=== PATIENT | male | born 1945 | race African-American/Black ===

== ENCOUNTER 2017-12-18 11:13 | Inpatient (IN) | payer MEDICARE ==
[2017-12-18] MEDS ORDERED: ACETAMINOPHEN 325 MG TABLET PO ONE (11:47)
[2017-12-18] MEDS ORDERED: NORMAL SALINE 1000 ML 1,000 ML IV ONE ×2 (11:47→15:33)
--- NOTE | 2017-12-18 11:49 | ER Document Report ---
ED Medical Screen (RME) - General Chief Complaint: Pain All Over Stated Complaint: PAIN ALL OVER Time Seen by Provider: 12/18/17 11:35 Notes: RAPID MEDICAL EVALUATION DISCLOSURE I have seen this patient as part of a Rapid Medical Evaluation and, if applicable, placed any initially appropriate orders. The patient will be seen and fully evaluated, including a full history and physical exam, by a provider ( in Main ED or Fast Track) when a room becomes available. 72-year-old male here with complaints of aches and pains all over as well as loss of appetite and possible dehydration. He states that approximately 1 month ago he sprained his right ankle and knee and was seen at [facility] where he was told he had sprains. He was taken home and states that he then started to have gout flare in multiple joints and was unable to ambulate therefore became "bedridden". Since then, he has had loss of appetite due to the pain in his joints and rest of his body. He reports he has only had 2 meals in the past few weeks and feels as though he may be dehydrated. His doctor, Dr. Mera, told him to come here. EXAM CTAB RRR Mildly decreased skin turgor TRAVEL OUTSIDE OF THE [place] IN LAST 30 DAYS: No - Related Data Allergies/Adverse Reactions: No Known Allergies Allergy (Verified 12/18/17 11:20) Physical Exam - Vital signs Vitals: Temp Pulse Resp BP Pulse Ox 97.4 F 97 14 124/79 98 12/18/17 11:25 12/18/17 11:25 12/18/17 11:25 12/18/17 11:25 12/18/17 11:25 Course - Vital Signs Vital signs: Temp Pulse Resp BP Pulse Ox 97.4 F 97 14 124/79 98 12/18/17 11:25 12/18/17 11:25 12/18/17 11:25 12/18/17 11:25 12/18/17 11:25
[2017-12-18 12:19] LABS: HEMATOCRIT 35.1 % (37.9-51.0); HEMOGLOBIN 11.6 g/dL (13.5-17.0); MEAN CORPUSCULAR HEMOGLOBIN 24.5 pg (27.0-33.4); MEAN CORPUSCULAR HGB CONC 33.1 g/dL (32.0-36.0); MEAN CORPUSCULAR VOLUME 74 fl (80-97); PLATELET COUNT 281 10^3/uL (150-450); RED BLOOD COUNT 4.73 10^6/uL (4.35-5.55); RED CELL DISTRIBUTION WIDTH 17.2 % (11.5-14.0); WHITE BLOOD COUNT 9.5 10^3/uL (4.0-10.5)
[2017-12-18 12:37] LABS: ALANINE AMINOTRANSFERASE 39 U/L (21-72); ALBUMIN 3.4 g/dL (3.5-5.0); ALKALINE PHOSPHATASE 88 U/L (38-126); ANION GAP 11 (5-19); ASPARTATE AMINO TRANSFERASE 58 U/L (17-59); BILIRUBIN,DIRECT 0.5 mg/dL (0.0-0.4); BILIRUBIN,TOTAL 0.5 mg/dL (0.2-1.3); BLOOD UREA NITROGEN 13 mg/dL (7-20); CALCIUM 8.9 mg/dL (8.4-10.2); CARBON DIOXIDE 25 mmol/L (22-30); CHLORIDE 93 mmol/L (98-107); CREATINE KINASE 43 U/L (55-170); GLUCOSE 93 mg/dL (75-110); PHOSPHORUS 3.9 mg/dL (2.5-4.5); POTASSIUM 4.6 mmol/L (3.6-5.0); SODIUM 128.7 mmol/L (137-145); TOTAL PROTEIN 7.7 g/dL (6.3-8.2)
[2017-12-18 12:45] LABS: ABSOLUTE MONOCYTES # (MANUAL) 0.4 10^3/uL (0.1-1.4); BASOPHILS % (MANUAL) 0 % (0-2); EOSINOPHILS % (MANUAL) 1 % (0-6); LYMPHOCYTES % (MANUAL) 32 % (13-45); MONOCYTES % (MANUAL) 4 % (3-13); SEGMENTED NEUTROPHILS % (MAN) 63 % (42-78); TOTAL CELLS COUNTED 100
[2017-12-18 12:46] LABS: ANISOCYTOSIS 1+; HYPOCHROMASIA 1+; PLATELET COMMENT ADEQUATE; TARGET CELLS 1+
--- NOTE | 2017-12-18 13:37 | ER Document Report ---
ED General - General Chief Complaint: Pain All Over Stated Complaint: PAIN ALL OVER Time Seen by Provider: 12/18/17 11:35 Notes: Patient is here today complaining of problems with his gout and weakness. Patient says that he has fallen a couple of times in the past few weeks. He is too weak to get up out of the bed. Has a history of gout affecting most of his joints complicating his ability to stand or walk. Patient denies any recent fever or chills. Denies any loss of consciousness or loss of use of either side of his body. Has never had a stroke. Patient had a fall on December 04 and injured his knee and ankle he has gout with involvement of all of his big joints of both the upper and lower extremity. He is not been able to walk since 07 December when he fell and was seen at [facility] emergency room. He had swelling of his joints at that time but was discharged home. He describes himself as currently being "bedridden" due to weakness and due to pain. He feels his skin is dry. Denies any difficulty breathing or shortness of breath. Denies any vomiting. TRAVEL OUTSIDE OF THE [place] IN LAST 30 DAYS: No - Related Data Allergies/Adverse Reactions: No Known Allergies Allergy (Verified 12/18/17 11:20) Past Medical History - Social History Smoking Status: Never Smoker Chew tobacco use (# tins/day): No Frequency of alcohol use: None Drug Abuse: None Family History: Reviewed & Not Pertinent Patient has suicidal ideation: No Patient has homicidal ideation: No - Past Medical History Cardiac Medical History: Reports: Hx Hypertension Musculoskeletal Medical History: Reports Hx Gout - On colchicine Psychiatric Medical History: Reports: Hx Anxiety, Hx Depression - anxiety Review of Systems - Review of Systems Notes: REVIEW OF SYSTEMS: CONSTITUTIONAL : Denies fever. Complains of weakness, generalized. EENT: Denies eye, ear, nose or mouth or throat pain or other symptoms. CARDIOVASCULAR: Denies chest pain. RESPIRATORY: Denies cough, chest congestion, or shortness of breath. GASTROINTESTINAL: Denies abdominal pain or nausea, vomiting, or diarrhea. GENITOURINARY: Denies difficulty or painful urinating, urinary frequency, blood in urine. MUSCULOSKELETAL: Denies back or neck pain. Denies joint pain or swelling. SKIN: Denies rash or skin lesions. NEUROLOGICAL: Denies LOC or altered mental status. Denies headache. Denies sensory loss or motor deficits. ALL OTHER SYSTEMS REVIEWED AND NEGATIVE. Physical Exam - Vital signs Vitals: Temp Pulse Resp BP Pulse Ox 97.4 F 97 14 124/79 98 12/18/17 11:25 12/18/17 11:25 12/18/17 11:25 12/18/17 11:25 12/18/17 11:25 Interpretation: Normal - Notes Notes: PHYSICAL EXAMINATION: GENERAL: Well-appearing, in no acute distress. Vital signs were all essentially normal. HEAD: Atraumatic, normocephalic. EYES: Pupils equal round and reactive to light, extraocular movements intact. ENT: oropharynx clear without exudates. Moist mucous membranes. NECK: Normal range of motion, supple. No carotid bruits heard. LUNGS: Breath sounds clear and equal bilaterally. HEART: Regular rate and rhythm without murmurs. ABDOMEN: Soft, nontender. No guarding or rebound. No masses. BACK: No tenderness throughout entire back. EXTREMITIES: N patient has some significant swelling of almost all of the large joints of his upper and lower extremities. I do not feel any tenths swelling of the knees or any effusions present. He does have some involvement of his olecranon bursa area as well as of the wrist and hands. These findings are all consistent with chronic gout. NEUROLOGICAL: Normal speech, unable to walk because of pain. Normal sensory, motor, and reflex exams. No lateralizing signs. Awake, alert, and oriented x3. Cranial nerves normal. PSYCH: Normal mood, normal affect. SKIN: Warm, dry, no rashes. Course - Re-evaluation Re-evalutation: 12/18/17 19:51 Patient's sodium is low. I spoke with Dr. Irene, his primary care provider, who will admit him for saline IV infusion. - Vital Signs Vital signs: Temp Pulse Resp BP Pulse Ox 97.9 F 78 16 157/83 H 98 12/18/17 17:30 12/18/17 17:30 12/18/17 17:30 12/18/17 17:30 12/18/17 17:30 - Laboratory Result Diagrams: 12/18/17 11:55 12/18/17 11:55 Laboratory results interpreted by me: 12/18/17 12/18/17 12/18/17 11:55 11:55 14:10 Hgb 11.6 L Hct 35.1 L MCV 74 L MCH 24.5 L RDW 17.2 H Sodium 128.7 L Chloride 93 L Direct Bilirubin 0.5 H Creatine Kinase 43 L Albumin 3.4 L Urine Ketones 20 H Discharge - Discharge Clinical Impression: Gout, Hyponatremia Condition: Stable Disposition: ADMITTED OBSERVATION Admitting Provider: [facility] Unit Admitted: Medical Floor
[2017-12-18 14:50] LABS: APPEARANCE,URINE CLEAR; BILIRUBIN,URINE NEGATIVE (NEGATIVE); COLOR,URINE YELLOW; GLUCOSE, URINE NEGATIVE (NEGATIVE); KETONES,URINE 20 mg/dL (NEGATIVE); LEUKOCYTE ESTERASE,URINE NEGATIVE (NEGATIVE); NITRITE,URINE NEGATIVE (NEGATIVE); PROTEIN,URINE NEGATIVE (NEGATIVE); URINE SPECIFIC GRAVITY 1.012; UROBILINOGEN,URINE NEGATIVE mg/dL (<2.0)
[2017-12-18 20:41] LABS: CREATINE KINASE MB 0.96 ng/mL (<4.55)
[2017-12-18 21:10] LABS: TROPONIN I < 0.012 ng/mL
--- NOTE | 2017-12-18 21:37 | PDOC H&P ---
History of Present Illness Admission Date/PCP: 12/18/17 15:49 History of Present Illness: MARYAM BENZ is a 72 year old male he came to the emergency room at [facility] for evaluation of pain involving multiple joints, weakness, fall. Patient stated that he had a fall on December 04 and injured his knee and ankle,, he said he has not been able to walk since December 07 after the fall, he was seen at [facility] emergency room, he was evaluated and discharged home, he said he is essentially bed ridden due to weakness and pain. He lives in [place] but he comes to see me in [place] for many years, he called the office on Sunday to describe his condition he wanted me to arrange an ambulance to transfer him for his residence to be admitted in this hospital in [facility]. I attempted to get [facility] to have him transported from [place] to [place] but they have no opening, family and friend was able to have him transferred into private automobile to the emergency room at [place]. I saw him on the floor he has swelling of the knees, wrist, elbow, consistent with gout. He has history of gout, the CRP was elevated. He was also found to have hyponatremia, SIADH type. He has a history of type 2 diabetes mellitus, this was treated with diet, he has consistently refused to have his blood drawn to check his A1c below the A1c that was done on this admission is 5.5 suggesting a well controlled diabetes mellitus. Past Medical History Cardiac Medical History: Reports: Hypertension Musculoskeltal Medical History: Reports: Gout - On colchicine Psychiatric Medical History: Reports: Depression - anxiety Social History Smoking Status: Never Smoker Frequency of Alcohol Use: None Hx Recreational Drug Use: No Drugs: None Hx Prescription Drug Abuse: No - Advance Directive Resuscitation Status: Full Code Family History Family History: Reviewed & Not Pertinent Parental Family History Reviewed: Yes Children Family History Reviewed: Yes Sibling(s) Family History Reviewed.: Yes Medication/Allergy Home Medications: Carvedilol Phosphate [Coreg CR 80 mg Ext. Release Capsule] 1 cap.sr PO DAILY Colchicine [Colchicine 0.6 mg Tablet] 0.6 mg PO DAILYP PRN 12/18/17 Lorazepam [Ativan 1 mg Tablet] 1 mg PO Q8 12/18/17 Mirtazapine 45 mg PO QHS 12/18/17 Olmesartan/Amlodipin/Hcthiazid [Tribenzor 40-10-25 mg Tablet] 1 each PO DAILY Allergies/Adverse Reactions: No Known Allergies Allergy (Verified 12/18/17 11:20) Review of Systems Constitutional: ABSENT: chills, fever(s), headache(s), weight gain, weight loss Eyes: ABSENT: visual disturbances Ears: ABSENT: hearing changes Cardiovascular: ABSENT: chest pain, dyspnea on exertion, edema, orthropnea, palpitations Respiratory: ABSENT: cough, hemoptysis Gastrointestinal: ABSENT: abdominal pain, constipation, diarrhea, hematemesis, hematochezia, nausea, vomiting Genitourinary: ABSENT: dysuria, hematuria Musculoskeletal: PRESENT: joint swelling, muscle weakness Integumentary: ABSENT: rash, wounds Neurological: ABSENT: abnormal gait, abnormal speech, confusion, dizziness, focal weakness, syncope Psychiatric: ABSENT: anxiety, depression, homidical ideation, suicidal ideation Endocrine: ABSENT: cold intolerance, heat intolerance, menstrual abnormalities, polydipsia, polyuria Hematologic/Lymphatic: ABSENT: easy bleeding, easy bruising, lymphadenopathy Physical Exam Vital Signs: Temp Pulse Resp BP Pulse Ox 98.4 F 87 17 131/79 H 97 12/18/17 20:05 12/18/17 20:05 12/18/17 20:05 12/18/17 20:05 12/18/17 20:05 Intake & Output 12/17/17 12/18/17 12/19/17 06:59 06:59 06:59 Weight 121.563 kg General appearance: PRESENT: no acute distress Head exam: PRESENT: atraumatic, normocephalic Eye exam: PRESENT: conjunctiva pink, EOMI, PERRLA Ear exam: PRESENT: normal external ear exam Neck exam: PRESENT: full ROM Respiratory exam: PRESENT: clear to auscultation marlo Cardiovascular exam: PRESENT: RRR, +S1, +S2 GI/Abdominal exam: PRESENT: normal bowel sounds, soft Rectal exam: PRESENT: deferred Musculoskeletal exam: PRESENT: tenderness, other - There is swelling, tenderness of multiple joints including both elbows, both knees, the ankleS Neurological exam: PRESENT: alert, CN II-XII grossly intact Psychiatric exam: PRESENT: appropriate affect, normal mood Skin exam: PRESENT: dry, intact, warm Results Laboratory Results: 12/18/17 12/18/17 19:45 19:45 Serum Osmolality 266 L C-Reactive Protein 42.8 H 12/18/17 12/18/17 19:45 19:45 Creatine Kinase 29 L CK-MB (CK-2) 0.96 Troponin I < 0.012 Assessment & Plan - Diagnosis (1) Polyarticular gout Is this a current diagnosis for this admission?: Yes Plan: Patient is admitted for the management of polyarticular gout, he will be treated with IV Solu-Medrol. He has essentially lost mobility because of the severe inflammation affecting multiple joints, the serum uric acid is low, a poor indicator of acute gouty arthropathy because of uric acid is all in the joint space at this time so serum uric acid does not correlate with acute gouty arthropathy. (2) SIADH (syndrome of inappropriate ADH production) Is this a current diagnosis for this admission?: Yes (3) Weakness Is this a current diagnosis for this admission?: Yes Plan: Patient has lost mobility because of severe gouty arthropathy
[2017-12-18] MEDS: METHYLPREDNISOLONE INJ 125 MG/2 ML SDV IV SCH (21:44)
[2017-12-18] MEDS ORDERED: CARVEDILOL PHOSPHATE PO SCH ×2 (21:45→22:00)
[2017-12-18] MEDS: LORAZEPAM 1 MG TABLET PO SCH (23:59)
[2017-12-19 02:14] LABS: CREATINE KINASE MB 1.17 ng/mL (<4.55); TROPONIN I < 0.012 ng/mL
[2017-12-19] MEDS: METHYLPREDNISOLONE INJ 125 MG/2 ML SDV IV SCH ×3 (06:16→21:58)
--- NOTE | 2017-12-19 07:48 | EKG REPORT ---
SEVERITY:- ABNORMAL ECG - SINUS RHYTHM FIRST DEGREE AV BLOCK LEFT AXIS DEVIATION BORDERLINE T ABNORMALITIES, INFERIOR LEADS : Confirmed by: Lenny Dobbs MD 19-Dec-2017 07:47:30
[2017-12-19 08:39] LABS: HEMATOCRIT 33.6 % (37.9-51.0); HEMOGLOBIN 11.2 g/dL (13.5-17.0); MEAN CORPUSCULAR HEMOGLOBIN 24.6 pg (27.0-33.4); MEAN CORPUSCULAR HGB CONC 33.2 g/dL (32.0-36.0); MEAN CORPUSCULAR VOLUME 74 fl (80-97); PLATELET COUNT 246 10^3/uL (150-450); RED BLOOD COUNT 4.55 10^6/uL (4.35-5.55); RED CELL DISTRIBUTION WIDTH 17.6 % (11.5-14.0); WHITE BLOOD COUNT 10.4 10^3/uL (4.0-10.5)
[2017-12-19] MEDS: LORAZEPAM 1 MG TABLET PO SCH ×3 (08:42→21:59)
[2017-12-19 09:00] LABS: ALANINE AMINOTRANSFERASE 42 U/L (21-72); ALKALINE PHOSPHATASE 86 U/L (38-126); ANION GAP 16 (5-19); ASPARTATE AMINO TRANSFERASE 41 U/L (17-59); BILIRUBIN,DIRECT 0.5 mg/dL (0.0-0.4); BILIRUBIN,TOTAL 0.5 mg/dL (0.2-1.3); BLOOD UREA NITROGEN 15 mg/dL (7-20); CALCIUM 8.8 mg/dL (8.4-10.2); CARBON DIOXIDE 18 mmol/L (22-30); CHLORIDE 96 mmol/L (98-107); GLUCOSE 112 mg/dL (75-110); POTASSIUM 4.9 mmol/L (3.6-5.0); SODIUM 130.4 mmol/L (137-145); TOTAL PROTEIN 6.8 g/dL (6.3-8.2)
[2017-12-19 09:10] LABS: ABSOLUTE LYMPHOCYTES# (MANUAL) 0.8 10^3/uL (0.5-4.7); ABSOLUTE MONOCYTES # (MANUAL) 0.2 10^3/uL (0.1-1.4); ABSOLUTE NEUTROPHILS# (MANUAL) 9.4 10^3/uL (1.7-8.2); BASOPHILS % (MANUAL) 0 % (0-2); EOSINOPHILS % (MANUAL) 0 % (0-6); HYPOCHROMASIA SLIGHT; LYMPHOCYTES % (MANUAL) 8 % (13-45); MONOCYTES % (MANUAL) 2 % (3-13); SEGMENTED NEUTROPHILS % (MAN) 90 % (42-78); TOTAL CELLS COUNTED 100
[2017-12-19 09:11] LABS: ANISOCYTOSIS 1+; PLATELET COMMENT ADEQUATE; PLATELET LARGE PRESENT; POIKILOCYTOSIS SLIGHT; TARGET CELLS SLIGHT; TEAR DROP CELLS SLIGHT; TOXIC GRANULATION 1+
[2017-12-19 09:13] LABS: CREATINE KINASE MB 1.15 ng/mL (<4.55)
[2017-12-19 09:16] LABS: TROPONIN I < 0.012 ng/mL
[2017-12-19] MEDS: ENOXAPARIN SODIUM INJ 40 MG/0.4 ML DISP.SYRIN SUBCUT SCH (09:30)
--- NOTE | 2017-12-19 17:56 | PDOC PROGRESS REPORT ---
Subjective Progress Note for:: 12/19/17 Subjective:: Patient was admitted yesterday virtually bedridden for the first time in 3 weeks he is able to get up and walk, the swelling of the elbow is almost resolved the knee swelling is gone down, the ankle swelling is resolved. Reason For Visit: INFLAMMATORY ARTHRITIS AFFECTING MULTIPLE JOINTS, Physical Exam Vital Signs: Temp Pulse Resp BP Pulse Ox 97.9 F 86 18 161/86 H 98 12/19/17 15:25 12/19/17 15:25 12/19/17 15:25 12/19/17 15:25 12/19/17 15:25 Intake & Output 12/18/17 12/19/17 12/20/17 06:59 06:59 06:59 Intake Total 1000 Output Total 400 700 Balance 600 -700 Weight 121.563 kg General appearance: PRESENT: no acute distress Eye exam: PRESENT: PERRLA Respiratory exam: PRESENT: clear to auscultation marlo Cardiovascular exam: PRESENT: +S1, +S2 GI/Abdominal exam: PRESENT: soft Neurological exam: PRESENT: alert Results Laboratory Results: 12/19/17 07:45 12/19/17 07:45 12/18/17 12/18/17 12/19/17 19:45 19:45 07:45 WBC RBC Hgb Hct MCV MCH MCHC RDW Plt Count Seg Neutrophils % Lymphocytes % Monocytes % Eosinophils % Basophils % Absolute Neutrophils Absolute Lymphocytes Absolute Monocytes Absolute Eosinophils Absolute Basophils Sodium Potassium Chloride Carbon Dioxide Anion Gap BUN Creatinine Est GFR ( Amer) Est GFR (Non-Af Amer) Glucose Serum Osmolality 266 L Calcium Total Bilirubin AST ALT Alkaline Phosphatase C-Reactive Protein 42.8 H Total Protein Albumin TSH 1.88 12/19/17 12/19/17 07:45 07:45 WBC 10.4 RBC 4.55 Hgb 11.2 L Hct 33.6 L MCV 74 L MCH 24.6 L MCHC 33.2 RDW 17.6 H Plt Count 246 Seg Neutrophils % Not Reportable Lymphocytes % Not Reportable Monocytes % Not Reportable Eosinophils % Not Reportable Basophils % Not Reportable Absolute Neutrophils Not Reportable Absolute Lymphocytes Not Reportable Absolute Monocytes Not Reportable Absolute Eosinophils Not Reportable Absolute Basophils Not Reportable Sodium 130.4 L Potassium 4.9 Chloride 96 L Carbon Dioxide 18 L Anion Gap 16 BUN 15 Creatinine 0.82 Est GFR ( Amer) > 60 Est GFR (Non-Af Amer) > 60 Glucose 112 H Serum Osmolality Calcium 8.8 Total Bilirubin 0.5 AST 41 ALT 42 Alkaline Phosphatase 86 C-Reactive Protein Total Protein 6.8 Albumin 3.0 L TSH 12/18/17 12/18/17 12/19/17 19:45 19:45 01:42 Creatine Kinase 29 L 36 L CK-MB (CK-2) 0.96 Troponin I < 0.012 12/19/17 12/19/17 12/19/17 01:42 07:45 07:45 Creatine Kinase 33 L CK-MB (CK-2) 1.17 1.15 Troponin I < 0.012 < 0.012 Assessment & Plan - Diagnosis (1) Polyarticular gout Is this a current diagnosis for this admission?: Yes Plan: Patient will continue IV Solu-Medrol, he showed tremendous response to treatment continue for a few more days (2) SIADH (syndrome of inappropriate ADH production) Is this a current diagnosis for this admission?: Yes Plan: Reduce sodium chloride infusion (3) Weakness Is this a current diagnosis for this admission?: Yes
[2017-12-19] MEDS: CARVEDILOL 12.5 MG TABLET PO SCH (21:59)
[2017-12-20] MEDS: METHYLPREDNISOLONE INJ 125 MG/2 ML SDV IV SCH ×3 (06:22→22:00)
[2017-12-20] MEDS: LORAZEPAM 1 MG TABLET PO SCH ×3 (06:23→22:00)
[2017-12-20] MEDS ORDERED: COLCHICINE 0.6 MG TABLET PO PRN (08:24)
[2017-12-20 08:59] LABS: ABSOLUTE LYMPHOCYTES (AUTO) 3.1 10^3/uL (0.5-4.7); ABSOLUTE MONOCYTES (AUTO) 0.5 10^3/uL (0.1-1.4); ABSOLUTE NEUT (AUTO) 13.6 10^3/uL (1.7-8.2); BASOPHILS % (AUTO) 0.1 % (0-2); HEMATOCRIT 31.5 % (37.9-51.0); HEMOGLOBIN 10.3 g/dL (13.5-17.0); LYMPHOCYTES % (AUTO) 18.2 % (13-45); MEAN CORPUSCULAR HEMOGLOBIN 23.9 pg (27.0-33.4); MEAN CORPUSCULAR HGB CONC 32.6 g/dL (32.0-36.0); MEAN CORPUSCULAR VOLUME 73 fl (80-97); MONOCYTES % (AUTO) 2.6 % (3-13); PLATELET COUNT 229 10^3/uL (150-450); RED BLOOD COUNT 4.29 10^6/uL (4.35-5.55); RED CELL DISTRIBUTION WIDTH 17.5 % (11.5-14.0); SEGMENTED NEUTROPHILS % (AUTO) 79.1 % (42-78); TOTAL CELLS COUNTED % (AUTO) 100 %; WHITE BLOOD COUNT 17.2 10^3/uL (4.0-10.5)
[2017-12-20 09:20] LABS: ALANINE AMINOTRANSFERASE 39 U/L (21-72); ALBUMIN 2.8 g/dL (3.5-5.0); ALKALINE PHOSPHATASE 72 U/L (38-126); ANION GAP 11 (5-19); ASPARTATE AMINO TRANSFERASE 31 U/L (17-59); BILIRUBIN,DIRECT 0.3 mg/dL (0.0-0.4); BILIRUBIN,TOTAL 0.4 mg/dL (0.2-1.3); BLOOD UREA NITROGEN 25 mg/dL (7-20); CALCIUM 8.9 mg/dL (8.4-10.2); CARBON DIOXIDE 21 mmol/L (22-30); CHLORIDE 95 mmol/L (98-107); GLUCOSE 148 mg/dL (75-110); POTASSIUM 4.6 mmol/L (3.6-5.0); TOTAL PROTEIN 6.5 g/dL (6.3-8.2)
[2017-12-20] MEDS: ENOXAPARIN SODIUM INJ 40 MG/0.4 ML DISP.SYRIN SUBCUT SCH (09:52)
[2017-12-20] MEDS: CARVEDILOL 12.5 MG TABLET PO SCH ×2 (09:56→22:00)
[2017-12-20] MEDS ORDERED: (PENDING PHARMACY ID) (Olmesartan/Amlodipin/Hcthiazid [Tribenzor 40-10-25 Mg Tablet] 1 EAC PO SCH (10:00)
[2017-12-20] MEDS: LOSARTAN POTASSIUM 50 MG TABLET PO SCH (10:35)
[2017-12-20] MEDS: HYDROCHLOROTHIAZIDE 25 MG TABLET PO SCH (10:35)
[2017-12-20] MEDS: AMLODIPINE BESYLATE 10 MG TABLET PO SCH (10:35)
--- NOTE | 2017-12-20 13:12 | Physician Advisory Note ---
Physician Advisor ProgressNote .: Pursuant to the plan for [facility], I have reviewed the medical record for this patient. Physician Advisor Statement: Please consider documenting, if you agree: 1. "[acute? acute on chronic?] weakness, suspect due to " (acute hyponatremia? deconditioning due to gout effects? relative hypoglycemia? ...) 2. "Acute hyponatremia, due to SIADH, suspect due to " (dehydration? HCTZ? ...) 3. Medical necessity: reasons why pt couldn't safely go home 12/19 (+/- po prednisone) when already feeling "much better" & "able to ambulate" again, w/Na better & no longer giving IVF - & also reasons why he can't go home today, if applicable - - "needing to monitor Na level for potential worsening again after stopping IVF"? - " not back to baseline"? (describe) - "I was/am CONCERNED about " Summary: Pt w/extensive gout, sufficiently severe to make him unable to ambulate recently. Also w/hyponatremia (acute?), which improved initially after IVF in ED. Weakness, presumably acute, likely due to . Given IV NS @150 initially, after bolus, which should affect his Na levels. This appears to have been d/c'd later on 12/19, since it was from an ED order. Home combo BP med's components (incl HCTZ & losartan) were held until today. Potential Medical Necessity issues: -Needing acute high dose steroids, which could play havoc with his DM control. ? reasons why glc not darline-high on such tremendous doses Solumedrol? - Pt is anemic. If due to underlying chronic GI bleeding (gastritis, ...), huge doses of Solumedrol could cause worsening of this. - Today's Na level worse (lower) again. - BUN is worsening, which could indicate dehydration or occult GI bleed, while Hgb appears noticeably lower today. - Now starting HCTZ again today, which may further worsen his Na levels. Status: If attending documents his concerns that made pt have clinical need for continued tx/monitoring in hospital 12/19 & 12/20, should be appropriate for conversion to Inpatient status. CK
[2017-12-20] MEDS ORDERED: DEXTROSE 50%-WATER 25 GM/50 ML DISP.SYRIN IV PRN ×2 (18:51)
[2017-12-20] MEDS ORDERED: GLUCAGON,HUMAN RECOMB 1 MG INJ IM PRN (18:51)
[2017-12-20] MEDS ORDERED: DEXTROSE 40% GEL 15 GM TUBE PO PRN ×2 (18:51)
--- NOTE | 2017-12-20 18:57 | PDOC PROGRESS REPORT ---
Subjective Progress Note for:: 12/20/17 Subjective:: Patient was admitted initially for observation for the management of polyarticular gout, he is on high-dose corticosteroid, Solu-Medrol 25 IV every 6 hours patient is responding to treatment but it is not safe to discharge patient home today, he still requires inpatient care for monitoring especially because of the hyperglycemia secondary to IV Solu-Medrol, history of diabetes mellitus presentl diet-controlledy, he will be started on Accu-Chek before meal with sliding scale to cover hyperglycemia. He also have hyponatremia secondary to SIADH, etiology unclear, the serum sodium is low today, we will continue Solu -Medrol for another day we will transition to p.o. prednisone tomorrow Reason For Visit: INFLAMMATORY ARTHRITIS AFFECTING MULTIPLE JOINTS, Physical Exam Vital Signs: Temp Pulse Resp BP Pulse Ox 97.3 F 71 22 H 148/92 H 97 12/20/17 15:56 12/20/17 15:56 12/20/17 15:56 12/20/17 15:56 12/20/17 15:56 Intake & Output 12/19/17 12/20/17 12/21/17 06:59 06:59 06:59 Intake Total 1000 Output Total 400 700 Balance 600 -700 Weight 121.563 kg 120.8 kg General appearance: PRESENT: no acute distress Eye exam: PRESENT: PERRLA Respiratory exam: PRESENT: clear to auscultation marlo Cardiovascular exam: PRESENT: +S1, +S2 GI/Abdominal exam: PRESENT: soft Neurological exam: PRESENT: alert, CN II-XII grossly intact Results Laboratory Results: 12/20/17 08:38 12/20/17 08:38 12/20/17 12/20/17 08:38 08:38 WBC 17.2 H RBC 4.29 L Hgb 10.3 L Hct 31.5 L MCV 73 L MCH 23.9 L MCHC 32.6 RDW 17.5 H Plt Count 229 Seg Neutrophils % 79.1 H Lymphocytes % 18.2 Monocytes % 2.6 L Eosinophils % 0.0 Basophils % 0.1 Absolute Neutrophils 13.6 H Absolute Lymphocytes 3.1 Absolute Monocytes 0.5 Absolute Eosinophils 0.0 Absolute Basophils 0.0 Sodium 127.0 L Potassium 4.6 Chloride 95 L Carbon Dioxide 21 L Anion Gap 11 BUN 25 H Creatinine 0.89 Est GFR ( Amer) > 60 Est GFR (Non-Af Amer) > 60 Glucose 148 H Calcium 8.9 Total Bilirubin 0.4 AST 31 ALT 39 Alkaline Phosphatase 72 Total Protein 6.5 Albumin 2.8 L 12/18/17 12/18/17 12/19/17 19:45 19:45 01:42 Creatine Kinase 29 L 36 L CK-MB (CK-2) 0.96 Troponin I < 0.012 12/19/17 12/19/17 12/19/17 01:42 07:45 07:45 Creatine Kinase 33 L CK-MB (CK-2) 1.17 1.15 Troponin I < 0.012 < 0.012 Assessment & Plan - Diagnosis (1) Polyarticular gout Is this a current diagnosis for this admission?: Yes (2) SIADH (syndrome of inappropriate ADH production) Is this a current diagnosis for this admission?: Yes (3) Weakness Is this a current diagnosis for this admission?: Yes (4) Steroid-induced hyperglycemia Is this a current diagnosis for this admission?: Yes - Plan Summary Plan Summary: Continue IV Solu-Medrol, start Accu-Chek q. before meals at bedtime with sliding scale change status to inpatient
[2017-12-21 07:10] LABS: ABSOLUTE NEUT (AUTO) 12.5 10^3/uL (1.7-8.2); BASOPHILS % (AUTO) 0.1 % (0-2); HEMATOCRIT 30.9 % (37.9-51.0); HEMOGLOBIN 10.3 g/dL (13.5-17.0); TOTAL CELLS COUNTED % (AUTO) 100 %
[2017-12-21] MEDS: LORAZEPAM 1 MG TABLET PO SCH ×3 (07:17→22:12)
[2017-12-21] MEDS: METHYLPREDNISOLONE INJ 125 MG/2 ML SDV IV SCH ×2 (07:17→13:18)
[2017-12-21 07:23] LABS: MEAN CORPUSCULAR VOLUME 72 fl (80-97)
[2017-12-21 07:33] LABS: ALANINE AMINOTRANSFERASE 41 U/L (21-72); ALBUMIN 2.8 g/dL (3.5-5.0); ALKALINE PHOSPHATASE 69 U/L (38-126); ANION GAP 9 (5-19); ASPARTATE AMINO TRANSFERASE 32 U/L (17-59); BILIRUBIN,DIRECT 0.4 mg/dL (0.0-0.4); BILIRUBIN,TOTAL 0.5 mg/dL (0.2-1.3); BLOOD UREA NITROGEN 24 mg/dL (7-20); CALCIUM 8.9 mg/dL (8.4-10.2); CARBON DIOXIDE 24 mmol/L (22-30); CHLORIDE 96 mmol/L (98-107); GLUCOSE 164 mg/dL (75-110); POTASSIUM 4.1 mmol/L (3.6-5.0); SODIUM 128.9 mmol/L (137-145); TOTAL PROTEIN 6.2 g/dL (6.3-8.2)
[2017-12-21 08:02] LABS: MEAN CORPUSCULAR HEMOGLOBIN 23.9 pg (27.0-33.4); MEAN CORPUSCULAR HGB CONC 33.2 g/dL (32.0-36.0); PLATELET COUNT 226 10^3/uL (150-450); RED CELL DISTRIBUTION WIDTH 17.5 % (11.5-14.0); WHITE BLOOD COUNT 14.7 10^3/uL (4.0-10.5)
[2017-12-21 08:03] LABS: ABSOLUTE LYMPHOCYTES (AUTO) 1.7 10^3/uL (0.5-4.7); LYMPHOCYTES % (AUTO) 11.8 % (13-45); MONOCYTES % (AUTO) 3.2 % (3-13)
[2017-12-21 08:04] LABS: ABSOLUTE MONOCYTES (AUTO) 0.5 10^3/uL (0.1-1.4); SEGMENTED NEUTROPHILS % (AUTO) 84.9 % (42-78)
[2017-12-21] MEDS: INSULIN LISPRO 100 UNIT/ML 3 ML VIAL SUBCUT PRN (08:58)
[2017-12-21] MEDS: AMLODIPINE BESYLATE 10 MG TABLET PO SCH (09:00)
[2017-12-21] MEDS: ENOXAPARIN SODIUM INJ 40 MG/0.4 ML DISP.SYRIN SUBCUT SCH (09:00)
[2017-12-21] MEDS: HYDROCHLOROTHIAZIDE 25 MG TABLET PO SCH (09:00)
[2017-12-21] MEDS: LOSARTAN POTASSIUM 50 MG TABLET PO SCH (09:02)
[2017-12-21] MEDS: CARVEDILOL 12.5 MG TABLET PO SCH ×2 (09:02→22:11)
[2017-12-21] MEDS: METHYLPREDNISOLONE INJ 40 MG/1 ML SDV IV SCH (19:46)
--- NOTE | 2017-12-21 20:23 | PDOC PROGRESS REPORT ---
Subjective Progress Note for:: 12/21/17 Subjective:: Patient was seen by the bedside, he was admitted on Sunday this week initially for observation for evaluation and management of polyarticular gout with loss of function and mobility, the gout was very severe to the extent that patient was not ambulatory, there was involvement of the knees, the elbow the ankles, he was treated with IV Solu-Medrol he was able to make some strides but is not safe yet for discharge ,physical therapy will be ordered for this patient.I will be off for the and be back on Sunday Reason For Visit: POLYARTICULAR GOUT,HYPONATREMIA Physical Exam Vital Signs: Temp Pulse Resp BP Pulse Ox 97.4 F 73 18 143/76 H 96 12/21/17 19:34 12/21/17 19:34 12/21/17 19:34 12/21/17 19:34 12/21/17 19:34 Intake & Output 12/20/17 12/21/17 12/22/17 06:59 06:59 06:59 Output Total 850 Balance -850 General appearance: PRESENT: obese Respiratory exam: PRESENT: clear to auscultation marlo Cardiovascular exam: PRESENT: +S1, +S2 Musculoskeletal exam: PRESENT: deformity Neurological exam: PRESENT: alert Results Laboratory Results: 12/21/17 06:59 12/21/17 06:59 12/21/17 12/21/17 06:59 06:59 WBC 14.7 H RBC 4.30 L Hgb 10.3 L Hct 30.9 L MCV 72 L MCH 23.9 L MCHC 33.2 RDW 17.5 H Plt Count 226 Seg Neutrophils % 84.9 H Lymphocytes % 11.8 L Monocytes % 3.2 Eosinophils % 0.0 Basophils % 0.1 Absolute Neutrophils 12.5 H Absolute Lymphocytes 1.7 Absolute Monocytes 0.5 Absolute Eosinophils 0.0 Absolute Basophils 0.0 Sodium 128.9 L Potassium 4.1 Chloride 96 L Carbon Dioxide 24 Anion Gap 9 BUN 24 H Creatinine 0.91 Est GFR ( Amer) > 60 Est GFR (Non-Af Amer) > 60 Glucose 164 H Calcium 8.9 Total Bilirubin 0.5 AST 32 ALT 41 Alkaline Phosphatase 69 Total Protein 6.2 L Albumin 2.8 L Assessment & Plan - Diagnosis (1) Polyarticular gout Is this a current diagnosis for this admission?: Yes Plan: Reduce Solu-Medrol to 60 mg IV from 125mg IV every 8 hours (2) SIADH (syndrome of inappropriate ADH production) Is this a current diagnosis for this admission?: Yes (3) Weakness Is this a current diagnosis for this admission?: Yes Plan: Consult physical therapy (4) Steroid-induced hyperglycemia Is this a current diagnosis for this admission?: Yes
[2017-12-22] MEDS: METHYLPREDNISOLONE INJ 40 MG/1 ML SDV IV SCH ×4 (05:39→20:59)
[2017-12-22] MEDS: LORAZEPAM 1 MG TABLET PO SCH ×3 (06:47→20:59)
[2017-12-22] MEDS: INSULIN LISPRO 100 UNIT/ML 3 ML VIAL SUBCUT PRN (10:25)
[2017-12-22] MEDS: ENOXAPARIN SODIUM INJ 40 MG/0.4 ML DISP.SYRIN SUBCUT SCH (10:25)
[2017-12-22] MEDS: AMLODIPINE BESYLATE 10 MG TABLET PO SCH (10:26)
[2017-12-22] MEDS: HYDROCHLOROTHIAZIDE 25 MG TABLET PO SCH (10:26)
[2017-12-22] MEDS: LOSARTAN POTASSIUM 50 MG TABLET PO SCH (10:26)
[2017-12-22] MEDS: CARVEDILOL 12.5 MG TABLET PO SCH ×2 (10:26→21:00)
[2017-12-23] MEDS: METHYLPREDNISOLONE INJ 40 MG/1 ML SDV IV SCH ×3 (05:54→21:55)
[2017-12-23] MEDS: LORAZEPAM 1 MG TABLET PO SCH ×3 (05:56→21:55)
[2017-12-23] MEDS: INSULIN LISPRO 100 UNIT/ML 3 ML VIAL SUBCUT PRN ×2 (10:28→17:51)
[2017-12-23] MEDS: ENOXAPARIN SODIUM INJ 40 MG/0.4 ML DISP.SYRIN SUBCUT SCH (10:29)
[2017-12-23] MEDS: CARVEDILOL 12.5 MG TABLET PO SCH ×2 (10:32→21:57)
[2017-12-23] MEDS: LOSARTAN POTASSIUM 50 MG TABLET PO SCH (10:33)
[2017-12-23] MEDS: AMLODIPINE BESYLATE 10 MG TABLET PO SCH (10:34)
--- NOTE | 2017-12-23 12:25 | PDOC PROGRESS REPORT ---
Subjective Progress Note for:: 12/22/17 Subjective:: Patient reported some improvement in his multiple joints aches and pain. Functional limitation persist. No chest pain or difficulty with breathing. No nausea or vomiting. No abdominal pain. No fever or chills. Reason For Visit: POLYARTICULAR GOUT,HYPONATREMIA Physical Exam Vital Signs: Temp Pulse Resp BP Pulse Ox 98.5 F 67 18 166/86 H 95 12/22/17 06:51 12/22/17 06:51 12/22/17 06:51 12/22/17 06:51 12/22/17 06:51 Intake & Output 12/21/17 12/22/17 12/23/17 06:59 06:59 06:59 Intake Total 550 400 Output Total 2100 Balance -1550 400 Weight 120.1 kg General appearance: PRESENT: no acute distress, obese Head exam: PRESENT: atraumatic, normocephalic Eye exam: PRESENT: conjunctiva pink, EOMI, PERRLA. ABSENT: scleral icterus Ear exam: PRESENT: normal external ear exam Mouth exam: PRESENT: moist Respiratory exam: PRESENT: clear to auscultation marlo Cardiovascular exam: PRESENT: RRR. ABSENT: diastolic murmur, rubs, systolic murmur Vascular exam: ABSENT: pallor GI/Abdominal exam: PRESENT: normal bowel sounds, soft. ABSENT: distended, guarding, mass, organolmegaly, rebound, tenderness Extremities exam: ABSENT: pedal edema Musculoskeletal exam: PRESENT: deformity - due to joint involvement with arthritis. No torpus involvement. Neurological exam: PRESENT: alert, awake, oriented to person, oriented to place , oriented to time, oriented to situation, CN II-XII grossly intact. ABSENT: motor sensory deficit Psychiatric exam: PRESENT: appropriate affect, normal mood. ABSENT: homicidal ideation, suicidal ideation Skin exam: PRESENT: dry, intact, warm. ABSENT: cyanosis, rash Results Laboratory Results: 12/21/17 06:59 12/21/17 06:59 Assessment & Plan - Diagnosis (1) Polyarticular gout Is this a current diagnosis for this admission?: Yes Plan: Continue current IV Solu Medrol therapy with gradual tapering and eventual transition to oral route. (2) Steroid-induced hyperglycemia Is this a current diagnosis for this admission?: Yes Plan: Due to steroid therapy. Maintain on sliding scale insulin therapy. This will resolve upon discontinuation of steroid therapy. (3) Hyponatremia Is this a current diagnosis for this admission?: Yes Plan: Continue current medication management. (4) SIADH (syndrome of inappropriate ADH production) Is this a current diagnosis for this admission?: Yes Plan: Continue current medication management. - Time Time Spent with patient: 25-34 minutes Medications reviewed and adjusted accordingly: Yes Anticipated discharge: Home with Homehealth Within: Other - Inpatient Certification Based on my medical assessment, after consideration of the patient's comorbidities, presenting symptoms, or acuity I expect that the services needed warrant INPATIENT care.: Yes I certify that my determination is in accordance with my understanding of Medicare's requirements for reasonable and necessary INPATIENT services [42 CFR 412.3e].: Yes Medical Necessity: Need Close Monitoring Due to Risk of Patient Decompensation, Risk of Complication if Not Cared For in Hospital 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 See covering attending physician orders.
--- NOTE | 2017-12-23 12:28 | PDOC PROGRESS REPORT ---
Subjective Progress Note for:: 12/23/17 Subjective:: Patient reported satisfactory participation in physical therapy session. Improvement in his joint pain and functional level. No chest pain or difficulty with breathing. No abdominal pain, nausea, or vomiting. Tolerating oral feeding. No fever or chills. Reason For Visit: POLYARTICULAR GOUT,HYPONATREMIA Physical Exam Vital Signs: Temp Pulse Resp BP Pulse Ox 99.0 F 66 16 146/80 H 94 12/23/17 11:02 12/23/17 11:02 12/23/17 11:02 12/23/17 11:02 12/23/17 11:02 Intake & Output 12/22/17 12/23/17 12/24/17 06:59 06:59 06:59 Intake Total 550 800 Output Total 2100 750 Balance -1550 50 Weight 120.1 kg 120 kg Physical Exam: General appearance: PRESENT: no acute distress, obese Head exam: PRESENT: atraumatic, normocephalic Eye exam: PRESENT: conjunctiva pink, EOMI, PERRLA. ABSENT: scleral icterus Ear exam: PRESENT: normal external ear exam Mouth exam: PRESENT: moist Respiratory exam: PRESENT: clear to auscultation marlo Cardiovascular exam: PRESENT: RRR. ABSENT: diastolic murmur, rubs, systolic murmur Vascular exam: ABSENT: pallor GI/Abdominal exam: PRESENT: normal bowel sounds, soft. ABSENT: distended, guarding, mass, organomegaly, rebound, tenderness Extremities exam: ABSENT: pedal edema Musculoskeletal exam: PRESENT: deformity - due to joint involvement with arthritis. Neurological exam: PRESENT: alert, awake, oriented to person, oriented to place , oriented to time, oriented to situation, CN II-XII grossly intact. ABSENT: motor sensory deficit Psychiatric exam: PRESENT: appropriate affect, normal mood. ABSENT: homicidal ideation, suicidal ideation Skin exam: PRESENT: dry, intact, warm. ABSENT: cyanosis, rash Results Laboratory Results: 12/21/17 06:59 12/21/17 06:59 Assessment & Plan - Diagnosis (1) Polyarticular gout Is this a current diagnosis for this admission?: Yes (2) Steroid-induced hyperglycemia Is this a current diagnosis for this admission?: Yes (3) Hyponatremia Is this a current diagnosis for this admission?: Yes (4) SIADH (syndrome of inappropriate ADH production) Is this a current diagnosis for this admission?: Yes - Time Time Spent with patient: 25-34 minutes Medications reviewed and adjusted accordingly: Yes Anticipated discharge: Home with Homehealth Within: Other - Inpatient Certification Based on my medical assessment, after consideration of the patient's comorbidities, presenting symptoms, or acuity I expect that the services needed warrant INPATIENT care.: Yes I certify that my determination is in accordance with my understanding of Medicare's requirements for reasonable and necessary INPATIENT services [42 CFR 412.3e].: Yes Medical Necessity: Need Close Monitoring Due to Risk of Patient Decompensation, Need For IV Fluids, Need for Pain Control, Risk of Complication if Not Cared For in Hospital 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
[2017-12-24] MEDS: METHYLPREDNISOLONE INJ 40 MG/1 ML SDV IV SCH (05:26)
[2017-12-24] MEDS: LORAZEPAM 1 MG TABLET PO SCH ×3 (05:26→22:00)
[2017-12-24 06:17] LABS: HEMOGLOBIN 10.2 g/dL (13.5-17.0); MEAN CORPUSCULAR HGB CONC 32.9 g/dL (32.0-36.0); MEAN CORPUSCULAR VOLUME 73 fl (80-97); PLATELET COUNT 238 10^3/uL (150-450); RED BLOOD COUNT 4.25 10^6/uL (4.35-5.55); RED CELL DISTRIBUTION WIDTH 17.8 % (11.5-14.0); WHITE BLOOD COUNT 16.8 10^3/uL (4.0-10.5)
[2017-12-24 06:39] LABS: ALANINE AMINOTRANSFERASE 47 U/L (21-72); ALBUMIN 2.7 g/dL (3.5-5.0); ALKALINE PHOSPHATASE 63 U/L (38-126); ANION GAP 9 (5-19); ASPARTATE AMINO TRANSFERASE 26 U/L (17-59); BILIRUBIN,DIRECT 0.3 mg/dL (0.0-0.4); BILIRUBIN,TOTAL 0.4 mg/dL (0.2-1.3); BLOOD UREA NITROGEN 27 mg/dL (7-20); CALCIUM 8.5 mg/dL (8.4-10.2); CARBON DIOXIDE 26 mmol/L (22-30); CHLORIDE 91 mmol/L (98-107); GLUCOSE 199 mg/dL (75-110); POTASSIUM 3.5 mmol/L (3.6-5.0); SODIUM 126.4 mmol/L (137-145); TOTAL PROTEIN 5.8 g/dL (6.3-8.2)
[2017-12-24 06:59] LABS: ABSOLUTE LYMPHOCYTES# (MANUAL) 1.3 10^3/uL (0.5-4.7); ABSOLUTE MONOCYTES # (MANUAL) 0.7 10^3/uL (0.1-1.4); ABSOLUTE NEUTROPHILS# (MANUAL) 14.8 10^3/uL (1.7-8.2); ANISOCYTOSIS 1+; BASOPHILS % (MANUAL) 0 % (0-2); EOSINOPHILS % (MANUAL) 0 % (0-6); HYPOCHROMASIA 1+; LYMPHOCYTES % (MANUAL) 8 % (13-45); MONOCYTES % (MANUAL) 4 % (3-13); PLATELET COMMENT ADEQUATE; POIKILOCYTOSIS 2+; SCHISTOCYTES 1+; SEGMENTED NEUTROPHILS % (MAN) 88 % (42-78); TARGET CELLS 2+; TOTAL CELLS COUNTED 100
[2017-12-24] MEDS: LOSARTAN POTASSIUM 50 MG TABLET PO SCH (09:25)
[2017-12-24] MEDS: AMLODIPINE BESYLATE 10 MG TABLET PO SCH (09:25)
[2017-12-24] MEDS: ENOXAPARIN SODIUM INJ 40 MG/0.4 ML DISP.SYRIN SUBCUT SCH (09:26)
[2017-12-24] MEDS: CARVEDILOL 12.5 MG TABLET PO SCH ×2 (09:26→22:00)
[2017-12-24] MEDS: INSULIN LISPRO 100 UNIT/ML 3 ML VIAL SUBCUT PRN ×2 (10:45→17:29)
--- NOTE | 2017-12-24 10:56 | PDOC PROGRESS REPORT ---
Subjective Progress Note for:: 12/24/17 Subjective:: Patient continue to improve in his functional level. Currently, he denied any joint pain. No chest pain or difficulty with breathing. No abdominal pain, nausea, or vomiting. No fever or chills. Reason For Visit: POLYARTICULAR GOUT,HYPONATREMIA Physical Exam Vital Signs: Temp Pulse Resp BP Pulse Ox 98.3 F 66 16 147/84 H 96 12/24/17 07:38 12/24/17 07:38 12/24/17 07:38 12/24/17 07:38 12/24/17 07:38 Intake & Output 12/23/17 12/24/17 12/25/17 06:59 06:59 06:59 Intake Total 800 800 Output Total 750 1400 Balance 50 -600 Weight 120 kg 120.8 kg Physical Exam: General appearance: PRESENT: no acute distress, obese Head exam: PRESENT: atraumatic, normocephalic Eye exam: PRESENT: conjunctiva pink, EOMI, PERRLA. ABSENT: scleral icterus Ear exam: PRESENT: normal external ear exam Mouth exam: PRESENT: moist Respiratory exam: PRESENT: clear to auscultation marlo Cardiovascular exam: PRESENT: RRR. ABSENT: diastolic murmur, rubs, systolic murmur Vascular exam: ABSENT: pallor GI/Abdominal exam: PRESENT: normal bowel sounds, soft. ABSENT: distended, guarding, mass, organomegaly, rebound, tenderness Extremities exam: ABSENT: pedal edema Musculoskeletal exam: PRESENT: deformity - due to joint involvement with arthritis. Neurological exam: PRESENT: alert, awake, oriented to person, oriented to place , oriented to time, oriented to situation, CN II-XII grossly intact. ABSENT: motor sensory deficit Psychiatric exam: PRESENT: appropriate affect, normal mood. ABSENT: homicidal ideation, suicidal ideation Skin exam: PRESENT: dry, intact, warm. ABSENT: cyanosis, rash Results Laboratory Results: 12/24/17 05:52 12/24/17 05:52 12/24/17 12/24/17 05:52 05:52 WBC 16.8 H RBC 4.25 L Hgb 10.2 L Hct 31.0 L MCV 73 L MCH 24.0 L MCHC 32.9 RDW 17.8 H Plt Count 238 Seg Neutrophils % Not Reportable Lymphocytes % Not Reportable Monocytes % Not Reportable Eosinophils % Not Reportable Basophils % Not Reportable Absolute Neutrophils Not Reportable Absolute Lymphocytes Not Reportable Absolute Monocytes Not Reportable Absolute Eosinophils Not Reportable Absolute Basophils Not Reportable Sodium 126.4 L Potassium 3.5 L Chloride 91 L Carbon Dioxide 26 Anion Gap 9 BUN 27 H Creatinine 0.90 Est GFR ( Amer) > 60 Est GFR (Non-Af Amer) > 60 Glucose 199 H Calcium 8.5 Total Bilirubin 0.4 AST 26 ALT 47 Alkaline Phosphatase 63 Total Protein 5.8 L Albumin 2.7 L Assessment & Plan - Diagnosis (1) Polyarticular gout Is this a current diagnosis for this admission?: Yes Plan: D/C IV Solu Medrol. Start on oral Prednisone tapering dose regimen. (2) Steroid-induced hyperglycemia Is this a current diagnosis for this admission?: Yes (3) Hyponatremia Is this a current diagnosis for this admission?: Yes (4) SIADH (syndrome of inappropriate ADH production) Is this a current diagnosis for this admission?: Yes (5) Drug-induced hypokalemia Is this a current diagnosis for this admission?: Yes Plan: Probably due to Solu Medrol usage. Patient will receive replacement therapy. Obtain magnesium level. - Time Time Spent with patient: 25-34 minutes Medications reviewed and adjusted accordingly: Yes Anticipated discharge: Home with Homehealth Within: Other - Inpatient Certification Based on my medical assessment, after consideration of the patient's comorbidities, presenting symptoms, or acuity I expect that the services needed warrant INPATIENT care.: Yes I certify that my determination is in accordance with my understanding of Medicare's requirements for reasonable and necessary INPATIENT services [42 CFR 412.3e].: Yes Medical Necessity: Need Close Monitoring Due to Risk of Patient Decompensation, Need For IV Fluids, Need for Pain Control, Risk of Complication if Not Cared For in Hospital 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
[2017-12-24] MEDS: POTASSIUM CHLORIDE 10 MEQ CAPSULE.ER PO SCH ×3 (12:02→22:01)
[2017-12-24] MEDS: PREDNISONE 10 MG TABLET PO SCH (12:03)
[2017-12-25] MEDS: LORAZEPAM 1 MG TABLET PO SCH ×2 (06:37→13:06)
[2017-12-25 06:49] LABS: ABSOLUTE LYMPHOCYTES (AUTO) 1.8 10^3/uL (0.5-4.7); ABSOLUTE MONOCYTES (AUTO) 0.7 10^3/uL (0.1-1.4); ABSOLUTE NEUT (AUTO) 13.3 10^3/uL (1.7-8.2); BASOPHILS % (AUTO) 0.3 % (0-2); EOSINOPHILS % (AUTO) 0.1 % (0-6); HEMOGLOBIN 10.5 g/dL (13.5-17.0); LYMPHOCYTES % (AUTO) 11.4 % (13-45); MEAN CORPUSCULAR HEMOGLOBIN 23.8 pg (27.0-33.4); MEAN CORPUSCULAR HGB CONC 32.7 g/dL (32.0-36.0); MEAN CORPUSCULAR VOLUME 73 fl (80-97); MONOCYTES % (AUTO) 4.4 % (3-13); PLATELET COUNT 257 10^3/uL (150-450); RED BLOOD COUNT 4.39 10^6/uL (4.35-5.55); RED CELL DISTRIBUTION WIDTH 17.8 % (11.5-14.0); SEGMENTED NEUTROPHILS % (AUTO) 83.8 % (42-78); TOTAL CELLS COUNTED % (AUTO) 100 %; WHITE BLOOD COUNT 15.9 10^3/uL (4.0-10.5)
[2017-12-25 06:58] LABS: ANION GAP 8 (5-19); BLOOD UREA NITROGEN 25 mg/dL (7-20); CALCIUM 8.6 mg/dL (8.4-10.2); CARBON DIOXIDE 25 mmol/L (22-30); CHLORIDE 95 mmol/L (98-107); GLUCOSE 123 mg/dL (75-110); POTASSIUM 4.4 mmol/L (3.6-5.0)
[2017-12-25 07:38] LABS: PLATELET COMMENT ADEQUATE; PLATELET GIANT PRESENT; PLATELET LARGE PRESENT; TOXIC GRANULATION 1+
[2017-12-25 07:39] LABS: ANISOCYTOSIS 2+; TARGET CELLS 1+
[2017-12-25] MEDS: PREDNISONE 10 MG TABLET PO SCH (09:49)
[2017-12-25] MEDS: AMLODIPINE BESYLATE 10 MG TABLET PO SCH (09:49)
[2017-12-25] MEDS: ENOXAPARIN SODIUM INJ 40 MG/0.4 ML DISP.SYRIN SUBCUT SCH (09:49)
[2017-12-25] MEDS: LOSARTAN POTASSIUM 50 MG TABLET PO SCH (09:50)
[2017-12-25] MEDS: CARVEDILOL 12.5 MG TABLET PO SCH ×2 (09:50→22:04)
[2017-12-25] MEDS: INSULIN LISPRO 100 UNIT/ML 3 ML VIAL SUBCUT PRN ×2 (12:46→22:18)
--- NOTE | 2017-12-25 21:09 | PDOC PROGRESS REPORT ---
Subjective Progress Note for:: 12/25/17 Subjective:: Patient was seen by the bedside, he was able to ambulate with PT today, he will be discharged home on Reason For Visit: POLYARTICULAR GOUT,HYPONATREMIA Physical Exam Vital Signs: Temp Pulse Resp BP Pulse Ox 98.8 F 70 17 127/75 H 98 12/25/17 19:19 12/25/17 19:19 12/25/17 19:19 12/25/17 19:19 12/25/17 19:19 Intake & Output 12/24/17 12/25/17 12/26/17 06:59 06:59 06:59 Intake Total 800 1640 Output Total 1400 1350 Balance -600 290 Weight 120.8 kg 119.7 kg General appearance: PRESENT: no acute distress Eye exam: PRESENT: PERRLA Respiratory exam: PRESENT: clear to auscultation marlo Cardiovascular exam: PRESENT: +S1, +S2 GI/Abdominal exam: PRESENT: soft Neurological exam: PRESENT: alert Results Laboratory Results: 12/25/17 06:31 12/25/17 06:31 12/25/17 12/25/17 06:31 06:31 WBC 15.9 H RBC 4.39 Hgb 10.5 L Hct 32.0 L MCV 73 L MCH 23.8 L MCHC 32.7 RDW 17.8 H Plt Count 257 Seg Neutrophils % 83.8 H Lymphocytes % 11.4 L Monocytes % 4.4 Eosinophils % 0.1 Basophils % 0.3 Absolute Neutrophils 13.3 H Absolute Lymphocytes 1.8 Absolute Monocytes 0.7 Absolute Eosinophils 0.0 Absolute Basophils 0.0 Sodium 128.0 L Potassium 4.4 Chloride 95 L Carbon Dioxide 25 Anion Gap 8 BUN 25 H Creatinine 0.77 Est GFR ( Amer) > 60 Est GFR (Non-Af Amer) > 60 Glucose 123 H Calcium 8.6 Assessment & Plan - Diagnosis (1) Polyarticular gout Is this a current diagnosis for this admission?: Yes (2) SIADH (syndrome of inappropriate ADH production) Is this a current diagnosis for this admission?: Yes (3) Weakness Is this a current diagnosis for this admission?: Yes (4) Steroid-induced hyperglycemia Is this a current diagnosis for this admission?: Yes - Plan Summary Plan Summary: Patient will continue p.o. prednisone
[2017-12-25] MEDS ORDERED: LORAZEPAM 1 MG TABLET PO ONE (22:30)
[2017-12-26] MEDS: LORAZEPAM 1 MG TABLET PO SCH ×3 (10:43→21:48)
[2017-12-26] MEDS: ENOXAPARIN SODIUM INJ 40 MG/0.4 ML DISP.SYRIN SUBCUT SCH (10:43)
[2017-12-26] MEDS: CARVEDILOL 12.5 MG TABLET PO SCH ×2 (10:43→21:48)
[2017-12-26] MEDS: LOSARTAN POTASSIUM 50 MG TABLET PO SCH (10:45)
[2017-12-26] MEDS: AMLODIPINE BESYLATE 10 MG TABLET PO SCH (10:46)
[2017-12-26] MEDS: PREDNISONE 10 MG TABLET PO SCH (10:47)
[2017-12-26 15:06] LABS: HEMOGLOBIN 10.7 g/dL (13.5-17.0); MEAN CORPUSCULAR HEMOGLOBIN 23.9 pg (27.0-33.4); MEAN CORPUSCULAR HGB CONC 32.4 g/dL (32.0-36.0); MEAN CORPUSCULAR VOLUME 74 fl (80-97); PLATELET COUNT 258 10^3/uL (150-450); RED BLOOD COUNT 4.46 10^6/uL (4.35-5.55); RED CELL DISTRIBUTION WIDTH 17.5 % (11.5-14.0); WHITE BLOOD COUNT 12.8 10^3/uL (4.0-10.5)
[2017-12-26 15:13] LABS: ALANINE AMINOTRANSFERASE 47 U/L (21-72); ALBUMIN 2.7 g/dL (3.5-5.0); ALKALINE PHOSPHATASE 64 U/L (38-126); ANION GAP 10 (5-19); ASPARTATE AMINO TRANSFERASE 28 U/L (17-59); BILIRUBIN,DIRECT 0.3 mg/dL (0.0-0.4); BILIRUBIN,TOTAL 0.7 mg/dL (0.2-1.3); BLOOD UREA NITROGEN 20 mg/dL (7-20); CALCIUM 8.3 mg/dL (8.4-10.2); CARBON DIOXIDE 25 mmol/L (22-30); CHLORIDE 93 mmol/L (98-107); GLUCOSE 138 mg/dL (75-110); POTASSIUM 4.3 mmol/L (3.6-5.0); SODIUM 128.1 mmol/L (137-145); TOTAL PROTEIN 5.7 g/dL (6.3-8.2)
[2017-12-26 15:29] LABS: ABSOLUTE LYMPHOCYTES# (MANUAL) 0.4 10^3/uL (0.5-4.7); ABSOLUTE MONOCYTES # (MANUAL) 0.8 10^3/uL (0.1-1.4); ABSOLUTE NEUTROPHILS# (MANUAL) 11.4 10^3/uL (1.7-8.2); ANISOCYTOSIS 2+; BASOPHILS % (MANUAL) 0 % (0-2); EOSINOPHILS % (MANUAL) 2 % (0-6); LYMPHOCYTES % (MANUAL) 3 % (13-45); MONOCYTES % (MANUAL) 6 % (3-13); PLATELET COMMENT ADEQUATE; SEGMENTED NEUTROPHILS % (MAN) 89 % (42-78); TARGET CELLS 1+; TOTAL CELLS COUNTED 100; TOXIC GRANULATION 1+; TOXIC VACUOLATION PRESENT
--- NOTE | 2017-12-26 20:26 | PDOC PROGRESS REPORT ---
Subjective Progress Note for:: 12/26/17 Subjective:: Patient was seen by the bedside, he did not participate in physical therapy today because he was fatigue Reason For Visit: POLYARTICULAR GOUT,HYPONATREMIA Physical Exam Vital Signs: Temp Pulse Resp BP Pulse Ox 98.1 F 70 20 113/68 96 12/26/17 15:56 12/26/17 15:56 12/26/17 15:56 12/26/17 15:56 12/26/17 15:56 Intake & Output 12/25/17 12/26/17 12/27/17 06:59 06:59 06:59 Intake Total 1640 500 Output Total 1350 Balance 290 500 Weight 119.7 kg 120.7 kg General appearance: PRESENT: no acute distress Eye exam: PRESENT: PERRLA Respiratory exam: PRESENT: clear to auscultation marlo Cardiovascular exam: PRESENT: +S1, +S2 GI/Abdominal exam: PRESENT: soft Neurological exam: PRESENT: alert Results Laboratory Results: 12/26/17 14:43 12/26/17 14:43 12/26/17 12/26/17 14:43 14:43 WBC 12.8 H RBC 4.46 Hgb 10.7 L Hct 33.0 L MCV 74 L MCH 23.9 L MCHC 32.4 RDW 17.5 H Plt Count 258 Seg Neutrophils % Not Reportable Lymphocytes % Not Reportable Monocytes % Not Reportable Eosinophils % Not Reportable Basophils % Not Reportable Absolute Neutrophils Not Reportable Absolute Lymphocytes Not Reportable Absolute Monocytes Not Reportable Absolute Eosinophils Not Reportable Absolute Basophils Not Reportable Sodium 128.1 L Potassium 4.3 Chloride 93 L Carbon Dioxide 25 Anion Gap 10 BUN 20 Creatinine 0.98 Est GFR ( Amer) > 60 Est GFR (Non-Af Amer) > 60 Glucose 138 H Calcium 8.3 L Total Bilirubin 0.7 AST 28 ALT 47 Alkaline Phosphatase 64 Total Protein 5.7 L Albumin 2.7 L Assessment & Plan - Diagnosis (1) Polyarticular gout Is this a current diagnosis for this admission?: Yes (2) SIADH (syndrome of inappropriate ADH production) Is this a current diagnosis for this admission?: Yes (3) Weakness Is this a current diagnosis for this admission?: Yes (4) Steroid-induced hyperglycemia Is this a current diagnosis for this admission?: Yes
[2017-12-27] MEDS: LORAZEPAM 1 MG TABLET PO SCH ×3 (09:25→21:30)
[2017-12-27] MEDS: ENOXAPARIN SODIUM INJ 40 MG/0.4 ML DISP.SYRIN SUBCUT SCH (09:35)
[2017-12-27] MEDS: AMLODIPINE BESYLATE 10 MG TABLET PO SCH (09:36)
[2017-12-27] MEDS: CARVEDILOL 12.5 MG TABLET PO SCH ×2 (09:38→21:27)
[2017-12-27] MEDS: LOSARTAN POTASSIUM 50 MG TABLET PO SCH (09:38)
[2017-12-27] MEDS: PREDNISONE 10 MG TABLET PO SCH (09:39)
[2017-12-27 16:39] LABS: RHEUMATOID FACTOR LEVELS IGA 43.1 EU/ml (.); RHEUMATOID FACTOR LEVELS IGG 29.6 EU/ml (.)
--- NOTE | 2017-12-27 22:08 | PDOC PROGRESS REPORT ---
Subjective Progress Note for:: 12/27/17 Subjective:: Patient seen by the bedside the prednisone dose is reduced, hopefully discharge home soon, still ambivalent about ambulation, risk of fall Reason For Visit: POLYARTICULAR GOUT,HYPONATREMIA Physical Exam Vital Signs: Temp Pulse Resp BP Pulse Ox 98.0 F 83 18 125/77 96 12/27/17 19:50 12/27/17 19:50 12/27/17 19:50 12/27/17 19:50 12/27/17 19:50 Intake & Output 12/26/17 12/27/17 12/28/17 06:59 06:59 06:59 Intake Total 1300 700 Balance 1300 700 Weight 120.7 kg 120.8 kg General appearance: PRESENT: no acute distress, well-developed, well-nourished Head exam: PRESENT: atraumatic, normocephalic Eye exam: PRESENT: conjunctiva pink, EOMI, PERRLA. ABSENT: scleral icterus Ear exam: PRESENT: normal external ear exam Mouth exam: PRESENT: moist, tongue midline Neck exam: PRESENT: full ROM Respiratory exam: PRESENT: clear to auscultation marlo Cardiovascular exam: PRESENT: RRR, +S1, +S2 Vascular exam: PRESENT: normal capillary refill GI/Abdominal exam: PRESENT: normal bowel sounds, soft Rectal exam: PRESENT: deferred Neurological exam: PRESENT: alert Psychiatric exam: PRESENT: appropriate affect, normal mood Skin exam: PRESENT: dry, intact, warm Results Laboratory Results: 12/26/17 14:43 12/26/17 14:43 Assessment & Plan - Diagnosis (1) Polyarticular gout Is this a current diagnosis for this admission?: Yes (2) SIADH (syndrome of inappropriate ADH production) Is this a current diagnosis for this admission?: Yes (3) Weakness Is this a current diagnosis for this admission?: Yes (4) Steroid-induced hyperglycemia Is this a current diagnosis for this admission?: Yes
[2017-12-28] MEDS: LORAZEPAM 1 MG TABLET PO SCH ×3 (05:38→22:29)
[2017-12-28] MEDS: LOSARTAN POTASSIUM 50 MG TABLET PO SCH (09:35)
[2017-12-28] MEDS: AMLODIPINE BESYLATE 10 MG TABLET PO SCH (09:36)
[2017-12-28] MEDS: CARVEDILOL 12.5 MG TABLET PO SCH ×2 (09:36→22:29)
[2017-12-28] MEDS: PREDNISONE 10 MG TABLET PO SCH (09:36)
[2017-12-28] MEDS: ENOXAPARIN SODIUM INJ 40 MG/0.4 ML DISP.SYRIN SUBCUT SCH (09:37)
--- NOTE | 2017-12-28 21:01 | PDOC PROGRESS REPORT ---
Subjective Progress Note for:: 12/28/17 Subjective:: Patient seen by the bedside the prednisone dose is reduced, hopefully discharge home soon, still ambivalent about ambulation, risk of fall Reason For Visit: POLYARTICULAR GOUT,HYPONATREMIA Physical Exam Vital Signs: Temp Pulse Resp BP Pulse Ox 98.3 F 80 18 117/68 95 12/28/17 15:54 12/28/17 15:54 12/28/17 15:54 12/28/17 15:54 12/28/17 15:54 Intake & Output 12/27/17 12/28/17 12/29/17 06:59 06:59 06:59 Intake Total 1300 1000 Output Total 450 300 Balance 1300 550 -300 Weight 120.8 kg 118.8 kg General appearance: PRESENT: no acute distress, well-developed, well-nourished Head exam: PRESENT: atraumatic, normocephalic Eye exam: PRESENT: conjunctiva pink, EOMI, PERRLA Ear exam: PRESENT: normal external ear exam Mouth exam: PRESENT: moist, tongue midline Neck exam: PRESENT: full ROM Respiratory exam: PRESENT: clear to auscultation marlo Cardiovascular exam: PRESENT: RRR, +S1, +S2 Vascular exam: PRESENT: normal capillary refill GI/Abdominal exam: PRESENT: normal bowel sounds, soft Rectal exam: PRESENT: deferred Neurological exam: PRESENT: alert Psychiatric exam: PRESENT: appropriate affect, normal mood Skin exam: PRESENT: dry, intact, warm Results Laboratory Results: 12/26/17 14:43 12/26/17 14:43 Assessment & Plan - Diagnosis (1) Polyarticular gout Is this a current diagnosis for this admission?: Yes (2) SIADH (syndrome of inappropriate ADH production) Is this a current diagnosis for this admission?: Yes (3) Weakness Is this a current diagnosis for this admission?: Yes (4) Steroid-induced hyperglycemia Is this a current diagnosis for this admission?: Yes
[2017-12-29] MEDS: LORAZEPAM 1 MG TABLET PO SCH (06:34)
[2017-12-29] MEDS: ENOXAPARIN SODIUM INJ 40 MG/0.4 ML DISP.SYRIN SUBCUT SCH (09:16)
[2017-12-29] MEDS: AMLODIPINE BESYLATE 10 MG TABLET PO SCH (09:17)
[2017-12-29] MEDS: PREDNISONE 10 MG TABLET PO SCH (09:17)
[2017-12-29] MEDS: CARVEDILOL 12.5 MG TABLET PO SCH (09:17)
[2017-12-29] MEDS: LOSARTAN POTASSIUM 50 MG TABLET PO SCH (09:18)
--- NOTE | 2017-12-29 11:49 | PDOC DISCHARGE SUMMARY ---
General - Admit/Disc Date/PCP Admission Date/Primary Care Provider: 12/20/17 18:58 Discharge Date: 12/29/17 - Discharge Diagnosis (1) Polyarticular gout Is this a current diagnosis for this admission?: Yes (2) SIADH (syndrome of inappropriate ADH production) Is this a current diagnosis for this admission?: Yes (3) Weakness Is this a current diagnosis for this admission?: Yes (4) Steroid-induced hyperglycemia Is this a current diagnosis for this admission?: Yes - Additional Information Resuscitation Status: Full Code Discharge Diet: Regular Discharge Activity: Activity As Tolerated Prescriptions: Carvedilol Phosphate [Coreg CR 80 mg Ext. Release Capsule] 1 cap.sr PO DAILY # 90 cpmp.24hr Febuxostat [Uloric 40 mg Tablet] 40 mg PO DAILY #90 tablet Olmesartan/Amlodipin/Hcthiazid [Tribenzor 40-10-25 mg Tablet] 1 each PO DAILY # 90 tablet Prednisone [Deltasone 10 mg Tablet] 2.5 mg PO DAILY #60 tablet Home Medications: Mirtazapine 45 mg PO QHS 12/18/17 Carvedilol Phosphate [Coreg CR 80 mg Ext. Release Capsule] 1 cap.sr PO DAILY # 90 cpmp.24hr 12/29/17 Febuxostat [Uloric 40 mg Tablet] 40 mg PO DAILY #90 tablet 12/29/17 Lorazepam [Ativan 1 mg Tablet] 1 mg PO Q8 #60 12/29/17 Olmesartan/Amlodipin/Hcthiazid [Tribenzor 40-10-25 mg Tablet] 1 each PO DAILY # 90 tablet 12/29/17 Prednisone [Deltasone 10 mg Tablet] 2.5 mg PO DAILY #60 tablet 12/29/17 History of Present Illness History of Present Illness: MARYAM BENZ is a 72 year old male he came to the emergency room at [facility] for evaluation of pain involving multiple joints, weakness, fall. Patient stated that he had a fall on December 04 and injured his knee and ankle,, he said he has not been able to walk since December 07 after the fall, he was seen at [facility] emergency room, he was evaluated and discharged home, he said he is essentially bed ridden due to weakness and pain. He lives in [place] but he comes to see me in [place] for many years, he called the office on Sunday to describe his condition he wanted me to arrange an ambulance to transfer him for his residence to be admitted in this hospital in [facility]. I attempted to get [facility] to have him transported from [place] to [place] but they have no opening, family and friend was able to have him transferred into private automobile to the emergency room at [facility]. I saw him on the floor he has swelling of the knees, wrist, elbow, consistent with gout. He has history of gout, the CRP was elevated. He was also found to have hyponatremia, SIADH type. He has a history of type 2 diabetes mellitus, this was treated with diet, he has consistently refused to have his blood drawn to check his A1c below the A1c that was done on this admission is 5.5 suggesting a well controlled diabetes mellitus. Hospital Course Hospital Course: Patient was admitted for the management of polyarticular gout, there was diffuse involvement of multiple joints including elbows knees, wrist, knuckles of both hands, the ankle, he was treated with intravenous corticosteroid, Solu- Medrol with resolution of the inflammatory swelling. Patient was nonambulatory on admission with treatment was able to to walk on also participate with physical therapy. Hospital course was prolonged because of complete loss of mobility due to severe inflammation of multiple joints. The rheumatoid factor was negative the anti-CCP antibody test was negative the finding is more consistent with severe gouty arthropathy. He be discharged home today on tapering dose of prednisone Physical Exam Vital Signs: Temp Pulse Resp BP Pulse Ox 98.7 F 78 18 129/75 H 99 12/29/17 08:25 12/29/17 08:25 12/29/17 08:25 12/29/17 08:25 12/29/17 08:25 Intake & Output 12/28/17 12/29/17 12/30/17 06:59 06:59 06:59 Intake Total 1000 400 Output Total 450 1400 35 Balance 550 -1000 -35 Weight 118.8 kg 118.932 kg General appearance: PRESENT: no acute distress Eye exam: PRESENT: PERRLA Respiratory exam: PRESENT: clear to auscultation marlo Cardiovascular exam: PRESENT: +S1, +S2 GI/Abdominal exam: PRESENT: soft Musculoskeletal exam: PRESENT: ambulatory Neurological exam: PRESENT: alert Results Laboratory Results: 12/26/17 14:43 12/26/17 14:43 Qualifiers - * PATIENT BEING DISCHARGED WITH ANY OF THE FOLLOWING DIAGNOSIS: No
[2017-12-29 12:02] VITALS: BP 131/72
== END 2017-12-29 13:00 | disposition home or self-care (01) | DRG 554 ==
LOC: EDSEX → ER 11:13 → EH 15:49 → 2S 18:10 → OBSVTOIN 12-20 18:58
PROVIDERS: ADMIT Internal Medicine; ATTEND Internal Medicine
DX: M10.9 Gout, unspecified (principal); E22.2 Syndrome of inappropriate secretion of antidiuretic hormone; R53.1 Weakness; T38.0X5A Adverse effect of glucocorticoids and synthetic analogues, initial encounter; R73.9 Hyperglycemia, unspecified; I10 Essential (primary) hypertension; Z79.899 Other long term (current) drug therapy
CPT/HCPCS: 36415; 80048; 80053; 80307; 81001; 82550; 82553; 82962; 83036; 83735; 83930; 83935; 84100; 84300; 84443; 84484; 84550; 85025; 85379; 85652; 86140; 86200; 86430; 86431; 93005; 93010; 96360; 96361; 99284; G0378; G8978-GP; G8979-GP; J1650; J1815; J2920; J2930; J3490; J7030; J7512